=== PATIENT | male | born 1985 | race African-American/Black ===

== ENCOUNTER 2018-09-23 22:49 | Emergency (ER) | payer OTHER ==
[~2018-09-23] VITALS: Ht 182.9 cm; Wt 101.4 kg
[2018-09-23 22:57] VITALS: BP 144/69; PULSE 72; RESP 18; Ht 182.9 cm; Wt 101.4 kg
--- NOTE | 2018-09-24 00:41 | ERD ---
ER Documentation Chief Complaint Chief Complaint flu-liked symptoms (nasal congestion) x 2-3 days HPI There is a 33-year-old male who presents here in the emergency department with complaints of cough and cold for about 3 days. Stated that he feels like he has a flu. Insisting a test for this. Also complains of throat pain. Denies headache, dizziness, blurred vision, neck pain, neck stiffness, difficult swallowing, difficult breathing lying flat, shoulder pain, chest pain, back pain, abdominal pain, nausea, vomiting, constipation, diarrhea, urinary symptoms, loss of bowel and bladder control, trauma, injury, falls, difficulty walking, recent travel, recent long travel, recent antibiotic use in the last 2 months, fever, chills, seizures ROS All systems reviewed and are negative except as per history of present illness. Medications Home Meds Active Scripts Amoxicillin* (Amoxicillin*) 500 Mg Cap, 500 MG PO TID for 10 Days, CAP Prov:PASILABAN,FLOAR F 09/24/18 Benzonatate* (Tessalon Perle*) 100 Mg Capsule, 100 MG PO Q8H PRN for COUGH, #14 CAP Prov:PASILABAN,FLOAR F 09/24/18 Ibuprofen* (Motrin*) 800 Mg Tab, 800 MG PO Q6H PRN for PAIN AND OR ELEVATED TEMP, #30 TAB Prov:PASILABANFLOAR F 09/24/18 Allergies Allergies: Coded Allergies: No Known Allergy (Unverified , 09/23/18) PMhx/Soc Medical and Surgical Hx: pt denies Medical Hx, pt denies Surgical Hx Hx Alcohol Use: No Hx Substance Use: No Hx Tobacco Use: No Smoking Status: Never smoker Physical Exam Vitals Vital Signs Date Temp Pulse Resp B/P (MAP) Pulse Ox O2 O2 Flow FiO2 Time Delivery Rate 09/23/18 98.5 72 18 144/69 98 22:57 (94) Physical Exam Const: No acute distress Head: Atraumatic Eyes: Normal Conjunctiva ENT: Normal External Ears, Nose and Mouth. Bilateral ears: TMs are erythematous. No bleeding. No discharge with no hearing loss. No mastoid tenderness. Nose: Midline. There is no frontal or maxillary sinus tenderness palpation. Throat: Uvula is midline and nondisplaced. Tonsils are +2 bilaterally with redness but no exudates. Tolerating secretions. Patent airway. Speaks full and clear sentences. No tripoding. Neck: Full range of motion. No meningismus. No nuchal rigidity. No signs of meningeal irritation. Resp: Clear to auscultation bilaterally. No accessory muscle use in breathing. Cardio: Regular rate and rhythm, no murmurs Abd: Soft, non tender, non distended. Normal bowel sounds. No abdominal tenderness. Skin: No petechiae or rashes Back: No midline or flank tenderness Ext: No cyanosis, or edema Neur: Awake and alert. No neurological deficit.. Psych: Normal Mood and Affect Procedures/MDM Diagnostic tests: Influenza a and B: Negative for influenza A. Negative for influenza B. Rapid strep screen: Negative. Treatment: NA. Re-evaluation: NA. Differential diagnosis I have low suspicion for sepsis, mastoiditis, meningitis, peritonsillar abscess, pneumonia, bronchospasm, severe dehydration. Final diagnosis: Mild otitis media. Tonsillitis. Bronchitis. Prescription: Motrin. Tylenol. Amoxicillin. Tessalon Perles. Follow-up with PCP in the next 24-48 hours. Come back here in the emergency department for any new symptoms or any worsening symptoms. All questions and concerns were answered. Patient and family members verbalized understanding and agreed with plan of care. Hemodynamically stable on discharge. Departure Diagnosis: Primary Impression: Tonsillitis Additional Impressions: Otitis media Bronchitis Condition: Stable Additional Instructions: Follow-up with PCP in the next 24-48 hours. Come back here in the emergency department for any new symptoms or any worsening symptoms. DOMINIC VARGAS Sep 24, 2018 00:41
[2018-09-24] MEDS ORDERED: IBUP800T48 PO (02:25)
[2018-09-24] MEDS ORDERED: AMOX500C2 PO (02:26)
[2018-09-24] MEDS ORDERED: BENZ-6 PO (02:26)
== END 2018-09-24 03:25 | disposition home or self-care (01) ==
LOC: FTE 22:49
DX: J03.90 Acute tonsillitis, unspecified (principal); H66.93 Otitis media, unspecified, bilateral; J40 Bronchitis, not specified as acute or chronic
CPT/HCPCS: 87400; 87880; Z7502; 99283